=== PATIENT | female | born 1965 | race Caucasian/White ===

== ENCOUNTER 2017-06-28 07:39 | Emergency (ER) | payer OTHER ==
[2017-06-28 07:55] VITALS: BP 118/72
[2017-06-28] MEDS ORDERED: Naproxen TAB* 250 MG PO ONE (08:55)
--- NOTE | 2017-06-28 09:02 | UC ---
Knee Pain HPI - HPI Summary HPI Summary: Sudden onset of left knee pain last night while walking up the stairs. Patient denies any fall or trauma. Pain is worse with movement and weightbearing and knee extension. Patient played lot of soccer in the past and so has had some issues with occasional knee pain but nothing that required intervention. - History of Current Complaint Chief Complaint: UCLowerExtremity Stated Complaint: KNEE COMPLAINT Time Seen by Provider: 06/28/17 08:23 Hx Obtained From: Patient Hx Last Menstrual Period: 06/14/17 Onset/Duration: Sudden Onset, Lasting Days - 1 day, Still Present Severity Initially: Moderate Severity Currently: Mild Pain Intensity: 2 Pain Scale Used: 0-10 Numeric Character: Sharp Aggravating Factor(s): Movement, Weight Bearing Alleviating Factor(s): Rest Associated Signs And Symptoms: Negative: Swelling, Redness, Bruising, Fever, Weakness, Numbness, Tingling Able to Bear Weight: Yes - Allergies/Home Medications Allergies/Adverse Reactions: Allergies Allergy/AdvReac Type Severity Reaction Status Date / Time azithromycin Allergy Unknown Verified 06/28/17 07:58 Reaction Details doxycycline Allergy Unknown Verified 06/28/17 07:58 Reaction Details Penicillins Allergy Rash Verified 06/28/17 07:58 PMH/Surg Hx/FS Hx/Imm Hx Cardiovascular History: Atrial Fibrillation - Surgical History Surgical History: Yes Surgery Procedure, Year, and Place: FACIAL CYST REMOVAL, TOOTH EXTRACTION - Family History Known Family History: Negative: Hypertension - Social History Alcohol Use: Rare Substance Use Type: None Smoking Status (MU): Former Smoker Review of Systems Constitutional: Negative Skin: Negative Respiratory: Negative Cardiovascular: Negative Gastrointestinal: Negative Musculoskeletal: Arthralgia, Decreased ROM All Other Systems Reviewed And Are Negative: Yes Physical Exam Triage Information Reviewed: Yes Appearance: Well-Appearing, No Pain Distress, Well-Nourished Vital Signs: Initial Vital Signs Temp 98.5 F 06/28/17 07:48 Pulse 77 06/28/17 07:48 Resp 16 06/28/17 07:48 BP 118/72 06/28/17 07:48 Pulse Ox 99 06/28/17 07:48 Vital Signs Reviewed: Yes Eyes: Positive: Conjunctiva Clear ENT: Positive: Hearing grossly normal Neck: Positive: Supple Respiratory: Positive: No respiratory distress, No accessory muscle use Cardiovascular: Positive: Pulses Normal Abdomen Description: Positive: Soft Musculoskeletal: Positive: No Edema, ROM Limited @ - left knee extension, Other : - LEFT KNEE: NO JOINT LINE TENDERNESS. MCL AND LCL INTACT TO STRESS TESTING. NEG LACHMANS. NEG DRAWERS SIGNS. NEG MCMURRAYS. NEG PATELLAR APPREHENSION TEST. NO TENDERNESS OVER PATELLAR LIGAMENT OR QUADRICEPS TENDON. DECREASED ROM ( EXTENSION). TENDER OVER PES ANSERINE BURSA [facility] - Radiology LEFT KNEE XRAY Xray Interpretation: No Acute Changes Radiology Interpretation Completed By: Radiologist Knee Pain Course/Dx - Differential Dx/Diagnosis Provider Diagnoses: LEFT KNEE SPRAIN Discharge - Sign-Out/Discharge Documenting (check all that apply): Discharge - Discharge Plan Condition: Stable Disposition: HOME Prescriptions: Naproxen [Naproxen EC] 500 mg PO BID PRN #30 tab PRN Reason: Pain Patient Education Materials: Knee Sprain (ED) Referrals: Kenneth Vincent MD [Primary Care Provider] - If Needed Sabino Merlos MD [Medical Doctor] - 2 Weeks Additional Instructions: The x-ray of your left knee today was unremarkable. Rest, ice, compress, elevate. Your symptoms should improve over the next few days. Take the Naprosyn twice daily as needed for discomfort. Be sure to go through slow range of motion and stretching exercises daily as able to prevent stiffening up and making the discomfort worse. If your symptoms are not improving as expected over the next 1-2 weeks follow-up with ortho. - Billing Disposition and Condition Condition: STABLE Disposition: HOME
--- NOTE | 2017-06-28 09:25 | RAD ---
INDICATION: Atraumatic left knee pain. TECHNIQUE: 4 views of the left knee were obtained. FINDINGS: The bones are in normal alignment. No joint effusion or fracture is seen. Joint spaces appear maintained. IMPRESSION: NEGATIVE EXAM.
== END 2017-06-28 09:46 | disposition home or self-care (01) ==
LOC: UCEAST 07:39
DX: S83.92XA Sprain of unspecified site of left knee, initial encounter (principal); X58.XXXA Exposure to other specified factors, initial encounter; Y93.9 Activity, unspecified; Y92.9 Unspecified place or not applicable; I48.91 Unspecified atrial fibrillation; Z88.1 Allergy status to other antibiotic agents; Z88.0 Allergy status to penicillin; Z87.891 Personal history of nicotine dependence
CPT/HCPCS: 99212; A9270-GY; G0463

== ENCOUNTER 2018-10-25 15:06 | Emergency (ER) | payer OTHER ==
[2018-10-25 15:22] VITALS: BP 112/70
--- NOTE | 2018-10-25 15:32 | UC ---
Skin Complaint HPI - HPI Summary HPI Summary: Pt presents with c/o itchy, slightly raised, mildly erythematous rash to left mid anterior forearm and distal anterior upper arm. Pt states that she has been gardening and walking a dog through tall grass and is concerned that she came in to contact with either poison [place] or wild parsnip. Pt has been using OTC cortisone 10 cream with some improvement. - History of Current Complaint Time Seen by Provider: 10/25/18 15:09 Stated Complaint: SKIN COMPLAINT Hx Obtained From: Patient Hx Last Menstrual Period: menopause ?: No Onset/Duration: Sudden Onset, Lasting Days, Still Present Skin Exposure Onset/Duration: Days Ago Timing: Constant Onset Severity: Mild Current Severity: Mild Pain Intensity: 2 Location: Discrete Character: Pruritus, Redness, Raised Aggravating Factor(s): Touch Alleviating Factor(s): OTC Creams/Salves Associated Signs & Symptoms: Positive: Rash Related History: Possible Reaction to: Environmental Exposure - Allergy/Home Medications Allergies/Adverse Reactions: Allergies Allergy/AdvReac Type Severity Reaction Status Date / Time azithromycin Allergy Unknown Verified 06/28/17 07:58 Reaction Details doxycycline Allergy Unknown Verified 06/28/17 07:58 Reaction Details Penicillins Allergy Rash Verified 06/28/17 07:58 PMH/Surg Hx/FS Hx/Imm Hx Previously Healthy: Yes - Surgical History Surgical History: Yes Surgery Procedure, Year, and Place: FACIAL CYST REMOVAL, TOOTH EXTRACTION - Family History Known Family History: Negative: Hypertension - Social History Occupation: Employed Full-time Lives: With Family Alcohol Use: Rare Substance Use Type: None Smoking Status (MU): Former Smoker Have You Smoked in the Last Year: No Review of Systems All Other Systems Reviewed And Are Negative: Yes Constitutional: Positive: Negative Skin: Positive: Rash Eyes: Positive: Negative ENT: Positive: Negative Respiratory: Positive: Negative Cardiovascular: Positive: Negative Gastrointestinal: Positive: Negative Genitourinary: Positive: Negative Motor: Positive: Negative Neurovascular: Positive: Negative Musculoskeletal: Positive: Negative Neurological: Positive: Negative Psychological: Positive: Negative Is Patient Immunocompromised?: No Physical Exam Triage Information Reviewed: Yes Appearance: Well-Appearing Vital Signs: Initial Vital Signs Temp 99.0 F 10/25/18 15:11 Pulse 75 10/25/18 15:11 Resp 16 10/25/18 15:11 BP 112/70 10/25/18 15:11 Pulse Ox 98 10/25/18 15:11 Vital Signs Reviewed: Yes Eye Exam: Normal ENT Exam: Normal ENT: Positive: Hearing grossly normal Dental Exam: Normal Neck exam: Normal Respiratory: Positive: No respiratory distress Musculoskeletal Exam: Normal Neurological Exam: Normal Psychological Exam: Normal Skin: Positive: Rashes - left forearm and upper arm Course/Dx - Differential Diagnoses - Skin Complaint Differential Diagnoses: Contact Dermatitis, Poison [place] - Diagnoses Provider Diagnosis: Contact dermatitis Discharge - Sign-Out/Discharge Documenting (check all that apply): Patient Departure All imaging exams completed and their final reports reviewed: No Studies - Discharge Plan Condition: Stable Disposition: HOME Prescriptions: predniSONE TAB* [Deltasone 20 MG TAB*] 20 mg PO DAILY #5 tab Patient Education Materials: Contact Dermatitis (ED) Referrals: Kenneth Vincent MD [Primary Care Provider] - If Needed - Billing Disposition and Condition Condition: STABLE Disposition: Home
== END 2018-10-25 15:46 | disposition home or self-care (01) ==
LOC: UCEAST 15:06
DX: L25.9 Unspecified contact dermatitis, unspecified cause (principal); Z87.891 Personal history of nicotine dependence; Z88.0 Allergy status to penicillin
CPT/HCPCS: 99212; G0463